=== PATIENT | female | born 1990 | race Caucasian/White ===

== ENCOUNTER 2025-01-01 22:30 | Inpatient (IN) | payer MEDICAID, SELFPAY ==
[2025-01-01 23:13] VITALS: BMI 31.9
[2025-01-01] MEDS ORDERED: Oxytocin 30 units/NS 500 ML 500 ML IV SCH (23:45)
[2025-01-01] MEDS ORDERED: Tranexamic Acid 1,000 MG/10 ML VIAL IVP PRN (23:47)
[2025-01-01] MEDS ORDERED: Carboprost 250 MCG/ML AMP IM PRN (23:47)
[2025-01-01] MEDS ORDERED: Methylergonovine 0.2 MG/ML VIAL IM PRN (23:47)
[2025-01-01] MEDS ORDERED: Diphenoxylate HCl/Atropine Tablet PO PRN ×2 (23:47)
[2025-01-01] MEDS ORDERED: Ondansetron PF 4 MG/2 ML Vial IVP PRN (23:47)
[2025-01-01] MEDS ORDERED: hydrALAZINE 20 MG/ML VIAL SLOW IVP PRN ×2 (23:47→23:51)
[2025-01-01] MEDS ORDERED: Acetaminophen 500 MG TAB PO PRN (23:47)
[2025-01-01] MEDS: Lidocaine 1% (PF) 30 ML VIAL ONE (23:49)
[2025-01-01] MEDS ORDERED: Lanolin Ointment 7 GM TUBE TOP PRN (23:51)
[2025-01-01] MEDS ORDERED: Preparation H Ointment 28 GM TUBE PR PRN (23:51)
[2025-01-01] MEDS ORDERED: Benzocaine-Menthol 82.5 ML CAN TOP PRN (23:51)
[2025-01-01] MEDS ORDERED: Milk Of Magnesia 30 ML UDCUP PO PRN (23:51)
[2025-01-01] MEDS ORDERED: Bisacodyl 10 MG SUPP PR PRN (23:51)
[2025-01-02 00:11] LABS: #Basophils 0.03 10x3/uL (0.0-0.2); #Eosinophils Less than 0.03 10x3/uL (0.0-0.5); #Monocytes 0.74 10x3/uL (0.0-1.1); #Neutrophils 17.28 10x3/uL (1.5-8.4); %Basophils 0.2 % (0.0-2.0); %Eosinophils 0.1 % (0.0-6.0); %Lymphocytes 6.5 % (18.0-47.0); %Monocytes 3.8 % (0.0-10.0); %Neutrophils 88.3 % (40.0-75.0); Hematocrit 31.9 % (34.9-44.5); Hemoglobin 10.4 g/dL (12.0-15.5); Mean Corpuscular Hemoglobin 28.6 pg (27.0-33.0); Mean Corpuscular Volume 87.6 fL (81.6-98.3); Platelet Count 288 10x3/uL (150-450); Red Blood Cell (RBC) Count 3.64 10x6/uL (3.90-5.03); White Blood Cell (WBC) Count 19.55 10x3/uL (3.5-10.5)
[2025-01-02] MEDS: Ibuprofen 800 MG TAB PO SCH ×2 (00:25→08:10)
[2025-01-02 00:35] LABS: ALT (SGPT) 23 U/L (Less than 34); AST (SGOT) 35 U/L (11-34); Albumin 2.7 g/dL (3.1-4.5); Alkaline Phosphatase 252 U/L (40-110); Anion Gap 13 mmol/L (10-20); BUN (Urea Nitrogen) 8 mg/dL (7.0-18.7); Bilirubin, Total 0.4 mg/dL (0.3-1.2); Calc. Creatinine Clearance 202 mL/min (70-130); Calcium 9.6 mg/dL (7.8-10.44); Carbon Dioxide 20 mmol/L (22-29); Chloride 106 mmol/L (98-107); Globulin 4.4 g/dL (2.4-3.5); Glucose 95 mg/dL (70-105); Potassium 3.8 mmol/L (3.5-5.1); Sodium 135 mmol/L (136-145)
[2025-01-02 00:52] LABS: Hep B Surf Ag - L&D Non-Reactive S/CO (NonReactive)
[2025-01-02 00:54] LABS: Syphilis Antibody Index 0.07 S/CO (<1.00 Non-Reactive)
[2025-01-02 01:15] LABS: HIV (1/2) Antibody/Antigen Non-Reactive (NonReactive); HIV 1/2 INDEX 0.10 S/CO (<1.00)
[2025-01-02 01:23] LABS: Cocaine Metabolite Screen Negative (Negative); THC/Cannabinoid Screen Negative (Negative); Tricyclic Screen Negative (Negative)
[2025-01-02] MEDS: Boostrix 0.5 ML (Tdap) VIAL (>/=7 yrs of age) IM ONE (07:41)
[2025-01-02] MEDS: Ferrous Sulfate 325 MG TAB PO SCH (08:09)
[2025-01-02] MEDS: Pantoprazole 40 MG DR.TAB PO SCH (08:10)
[2025-01-02 14:03] LABS: Hep C IgG Ab NONREACTIVE S/CO (NonReactive); Hep C Index 0.77 S/CO (0-0.79)
[2025-01-03 07:47] VITALS: BP 109/63; TEMP 97.9
== END 2025-01-03 15:05 | disposition home or self-care (01) | DRG 807 ==
LOC: CSHLD 22:56 → CSHNSY 22:56 → UNDOADMIN 22:56 → CSHPP 01-02 02:40
PROVIDERS: ADMIT Obstetrics & Gynecology; ATTEND Obstetrics & Gynecology
PROC: 10E0XZZ Delivery of Products of Conception, External Approach (ICD-10-PCS; principal; 2025-01-01)
PROC: 0HQ9XZZ Repair Perineum Skin, External Approach (ICD-10-PCS; 2025-01-01)
DX: O48.0 Post-term pregnancy (principal); Z37.0 Single live birth; Z3A.40 40 weeks gestation of pregnancy; O70.0 First degree perineal laceration during delivery
CPT/HCPCS: 80053; 80306; 85025; 86706; 86762; 86780; 86803; 86850; 86900; 86901; 87340; 87389